=== PATIENT | male | born 1990 | race Caucasian/White ===

== ENCOUNTER 2016-12-20 15:33 | Emergency (ER) | payer SELFPAY ==
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
[2016-12-20] MEDS ORDERED: Ketorolac INJ* 60 MG/2 ML VIAL IM ONE (16:20)
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
[2016-12-20 17:42] VITALS: BP 132/76
== END 2016-12-20 17:41 | disposition home or self-care (01) ==
LOC: ED 15:33
DX: S60.221A Contusion of right hand, initial encounter (principal); M19.041 Primary osteoarthritis, right hand; W23.0XXA Caught, crushed, jammed, or pinched between moving objects, initial encounter; Y93.9 Activity, unspecified; Y92.9 Unspecified place or not applicable
CPT/HCPCS: 96372; 99282; J1885

== ENCOUNTER 2017-11-02 10:01 | Emergency (ER) | payer OTHER ==
[2017-11-02 11:10] VITALS: BP 148/91
--- NOTE | 2017-11-02 12:25 | ED ---
Throat Pain/Nasal Congestion - HPI Summary HPI Summary: Patient is a 26-year-old male who presents emergency department for dental pain times several days. Patient states he was seen in urgent care 3 days ago started on clindamycin 3 times a day. Patient presents to the ER today because facial swelling is becoming worse. Has had subjective fever. Touching affected area and eating makes symptoms worse. Nothing makes symptoms better. Has been taking Ultram for pain. Has no significant past medical hx. - History of Current Complaint Chief Complaint: EDDentalPain Time Seen by Provider: 11/02/17 10:22 Hx Obtained From: Patient - Allergies/Home Medications Allergies/Adverse Reactions: Allergies Allergy/AdvReac Type Severity Reaction Status Date / Time amoxicillin Allergy Itching Verified 11/02/17 10:23 tylenol Allergy Itching Uncoded 11/02/17 10:23 PMH/Surg Hx/FS Hx/Imm Hx Previously Healthy: Yes Endocrine/Hematology History: Denies: Hx Diabetes Cardiovascular History: Denies: Hx Hypertension Respiratory History: Denies: Hx Asthma Musculoskeletal History: Reports: Hx Arthritis - PT STATES THTA HE HAS ARTHRITIS IN THE RIGHT ARM, Other Musculoskeletal History Sensory History: Denies: Hx Contacts or Glasses, Hx Hearing Aid Opthamlomology History: Denies: Hx Contacts or Glasses - Surgical History Surgery Procedure, Year, and Place: METAL POWER PLACED FROM HIP TO CETER OF FEMUR IN LEFT LEG- 2006- [place]. PIN PLACED SCAPHOID 2008- [facility]. DENTAL SURGERY WIDOM TEETH PULLED -2011 Hx Anesthesia Reactions: No Infectious Disease History: No Infectious Disease History: Denies: Traveled Outside the US in Last 30 Days - Family History Known Family History: Positive: None - Social History Occupation: Unemployed Lives: With Family Alcohol Use: None Substance Use Type: Reports: None Substance Use Comment - Amount & Last Used: PT MAY SMOKE 1/2 A JOINT ONCE EVERY SIX MONTHS Smoking Status (MU): Heavy Every Day Tobacco Smoker Amount Used/How Often: PACK A DAY Review of Systems Positive: Fever Positive: Dental Pain All Other Systems Reviewed And Are Negative: Yes Physical Exam Triage Information Reviewed: Yes Vital Signs On Initial Exam: Initial Vitals Temp Pulse Resp BP Pulse Ox 97.6 F 95 18 143/118 97 11/02/17 10:04 11/02/17 10:04 11/02/17 10:04 11/02/17 10:04 11/02/17 10:04 Vital Signs Reviewed: Yes Appearance: Positive: Well-Appearing - Pt. sitting on bed in NAD. Mother present. Skin: Positive: Warm, Dry Head/Face: Positive: Other - Very mild edema noted just above the upper left lip to maxillary region. Eyes: Positive: Normal Dental: Positive: Other - Poor dentition throughout. Gums surround top left upper teeth area edematous and erythematous. No fluctuance or drainable abscess. No necrosis. No trismus. No swelling under the tongue or jaw. Neck: Positive: Supple, Nontender, No Lymphadenopathy Neurological: Positive: Normal, CN Intact II-III Psychiatric: Positive: Affect/Mood Appropriate Diagnostics - Vital Signs Vital Signs Temp Pulse Resp BP Pulse Ox 11/02/17 11:10 97.9 F 87 16 148/91 97 11/02/17 11:08 148/91 11/02/17 11:00 87 96 11/02/17 10:51 84 146/94 96 11/02/17 10:20 95 147/113 97 11/02/17 10:04 97.6 F 95 18 143/118 97 - Laboratory Lab Statement: Any lab studies that have been ordered have been reviewed, and results considered in the medical decision making process. EENT Course/Dx - Course Course Of Treatment: Pt. presenting with ongoing dental pain and mild facial edema. He is afebrile with stable vital signs. No drainable abscess. Pt. examined by Dr. Long as well who recommends NSAIDs and chlorhexidine mouth wash. Advised close f.u with a dentist. To return to ER if sxs change or worsen. - Differential Diagnoses Differential Diagnoses: Dental Abscess, Gingivitis, Periodontic Abscess, Periodontic Disease, Pharyngitis - Diagnoses Provider Diagnoses: Dental abscess Discharge - Sign-Out/Discharge Documenting (check all that apply): Discharge/Admit/Transfer - Discharge Plan Condition: Good Disposition: HOME Prescriptions: Chlorhexidine MOUTHWASH 0.12%* [Peridex Mouth Wash 0.12%*] 15 ml MT BID #210 btl Naproxen [Naproxen 500 mg tab] 500 mg PO Q12HR #20 tablet Patient Education Materials: Dental Abscess (ED) Referrals: No Primary Care Phys,NOPCP [Primary Care Provider] - Additional Instructions: Schedule an appointment with a dentist Continue medications as directed Return to ER if symptoms change or worsen - Billing Disposition and Condition Condition: GOOD Disposition: HOME
== END 2017-11-02 11:10 | disposition home or self-care (01) ==
LOC: ED 10:01
DX: K04.7 Periapical abscess without sinus (principal); F17.210 Nicotine dependence, cigarettes, uncomplicated
CPT/HCPCS: 99282

== ENCOUNTER 2018-12-28 08:13 | Emergency (ER) | payer OTHER ==
[2018-12-28] MEDS ORDERED: Ondansetron INJ* 2 MG/ML VIAL IV ONE (08:43)
[2018-12-28] MEDS ORDERED: LORazepam INJ* 2 MG/ML 1 ML VIAL IV PUSH ONE (08:44)
[2018-12-28] MEDS ORDERED: Lorazepam PYXIS KEY PRN (08:44)
[2018-12-28] MEDS ORDERED: Clindamycin 900 MG IVPREMIX(* 900 MG/50 ML SDV IV ONE (08:44)
[2018-12-28] MEDS: NS 0.9% 1000 ML** 2,000 ML IV ONE (09:08)
[2018-12-28 09:12] LABS: ABS Eosinophils 0.2 10^3/ul (0-0.6); ABS Lymphocytes 0.6 10^3/ul (1.0-4.8); ABS Monocytes 0.9 10^3/ul (0-0.8); ABS Neutrophils 8.4 10^3/ul (1.5-7.7); Eosinophil % 1.7 %; Hematocrit 44 % (42-52); Hemoglobin 15.2 g/dL (14.0-18.0); Mean Corpuscular HGB Conc 35 g/dL (31-36); Mean Corpuscular Hemoglobin 31 pg (27-31); Mean Corpuscular Volume 88 fL (80-94); Mean Platelet Volume 9.7 fL (7.4-10.4); Platelet Count 117 10^3/uL (150-450); Red Blood Count 4.98 10^6 /uL (4.18-5.48); Red Cell Distribution Width 15 % (10-15)
[2018-12-28 09:23] LABS: Albumin 4.5 g/dL (3.2-5.2); Albumin/Globulin Ratio 1.7 (1-3); C Reactive Protein 48.17 mg/L (<8.01); EGFR African American 145.6 (>60); EGFR Non-African American 120.3 (>60); Globulin 2.7 g/dL (2-4); Potassium 3.6 mmol/L (3.5-5.0); Total Bilirubin 0.7 mg/dL (0.2-1.0); Total Protein 7.2 g/dL (6.4-8.9)
[2018-12-28 10:56] VITALS: BP 131/58
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
== END 2018-12-28 10:55 | disposition home or self-care (01) ==
LOC: ED 08:13
DX: T24.212A Burn of second degree of left thigh, initial encounter (principal); X08.8XXA Exposure to other specified smoke, fire and flames, initial encounter; Y93.84 Activity, sleeping; Y92.9 Unspecified place or not applicable; L03.116 Cellulitis of left lower limb; R11.2 Nausea with vomiting, unspecified; F41.9 Anxiety disorder, unspecified; Z88.6 Allergy status to analgesic agent; Z88.0 Allergy status to penicillin; F17.200 Nicotine dependence, unspecified, uncomplicated
CPT/HCPCS: 36415; 80053; 83605; 85025; 86140; 96361; 96365; 96375; 99282; J2060; J2405